=== PATIENT | female | born 1940 | race African-American/Black ===

== ENCOUNTER 2016-09-13 14:28 | Emergency (ER) | payer OTHER, BC ==
[2016-09-13 14:57] VITALS: BP 113/70; PULSE 92; RESP 18; TEMP 97.7; O2SAT 95
[2016-09-13] MEDS ORDERED: OXYCODONE/APAP 5/325 TAB PO ONE (15:44)
--- NOTE | 2016-09-13 16:45 | UCPHY ---
H & P Time Seen by Provider: 09/13/16 15:12 Patient Type: New HPI/ROS: [place] state and sustained 3 through 8 rib fractures and a small pneumothorax. She was admitted and treated from this injury a week ago and her daughter just brought her to [place] to recuperate. The patient is down to handful of Percocet left and requests a refill of Percocet and Flexeril. She also ran out of Flexeril. She had partial control of her pain with these medications without any medications she has 8/10 left-sided chest pain. She is using an incentive spirometer regularly as instructed. In she has no other complaints. ROS: No hemoptysis. No respiratory distress. No vomiting. No belly pain. No other significant injuries from her fall. 7 point ROS is otherwise negative. Past Medical/Surgical History: Left-sided rib fractures as described in HPI. Hypertension Hypercholesterolemia Otherwise healthy Smoking Status: Never smoked Physical Exam: General Appearance: Alert, no distress. Eyes: Pupils equal and round no pallor or injection. ENT, Mouth: Mucous membranes moist. Respiratory: Minimal rhonchi at the left base. Otherwise clear to auscultation. She has exquisite left-sided lateral rib 5 tenderness. No flail chest is evident. Cardiovascular: Regular rate and rhythm. Gastrointestinal: Abdomen is soft and nontender, no masses, bowel sounds normal. Neurological: Alert with no focal deficits. Skin: Warm and dry, no rashes. Musculoskeletal: Neck is supple nontender. Extremities are symmetrical, full range of motion. Psychiatric: Mood and affect are normal DIFFERENTIAL DIAGNOSIS: After history and physical exam differential diagnosis was considered pre-existing rib fractures, for rule out ongoing pneumothorax, hemothorax or other complications. Constitutional: Initial Vital Signs Temperature (C) 36.5 C 09/13/16 14:49 Heart Rate 92 09/13/16 14:49 Respiratory Rate 18 09/13/16 14:49 Blood Pressure 113/70 09/13/16 14:49 O2 Sat (%) 95 09/13/16 14:49 O2 Delivery Mode Room Air Allergies/Adverse Reactions: aspirin Allergy (Verified 09/13/16 14:46) Home Medications: Medication Instructions Recorded Alendronate Sodium 09/13/16 Allopurinol 09/13/16 Amlodipine Besylate 09/13/16 Colchicine 09/13/16 Cyclobenzaprine [Flexeril 10 MG 10 mg PO TID PRN #30 tab 09/13/16 (*)] Docusate Sodium 09/13/16 Docusate Sodium [Colace 100 MG (*)] 100 mg PO BID PRN #20 cap 09/13/16 Ezetimibe 09/13/16 Flexeril 09/13/16 Lidocaine 09/13/16 Metoprolol Succinate 09/13/16 Percocet 5-325 mg Tablet 09/13/16 Simvastatin 09/13/16 oxyCODONE/APAP 5/325 [Percocet 1 - 2 tab PO Q4-6PRN PRN #30 tab 09/13/16 5/325 (*)] MDM/Departure - MDM Diagnostics: Chest x-ray PA and lateral: Left 3rd through 8th rib fractures. No pneumothorax. Small effusion at the left base. No significant change from previous chest x-ray that the family provided from the out [facility]. I reviewed this with Dr. Darell Mcadams-radiologist. Medications Given: Discontinued Medications Oxycodone/Acetaminophen (Percocet 5/325) 1 tab PO EDNOW ONE Stop: 09/13/16 15:45 Last Admin: 09/13/16 15:50 Dose: 1 tab ED Course/Re-evaluation: I counseled patient regarding her rib fractures. We treated her with a Percocet here for pain control partial relief. Discussion: No evidence of significant complications. Patient has normal vitals exception of an O2 sat of 95% on room air. She appears clinically well despite her significant rib fractures. - Depart Disposition: Home, Routine, Self-Care Clinical Impression: Multiple rib fractures involving four or more ribs Condition: Good Instructions: Rib Fracture (ED) Additional Instructions: Diagnosis: Multiple rib fractures Plan: Continue Percocet as needed for pain control Colace or other stool softener to prevent constipation Continue using incentive spirometer Follow up with Dr. Champion for another recheck for any ongoing symptoms. Her symptoms should gradually improve over the next 4-6 weeks. Go to the emergency department for any significant shortness of breath, fevers or other concerns Prescriptions: Cyclobenzaprine [Flexeril 10 MG (*)] 10 mg PO TID PRN #30 tab PRN Reason: Spasms Docusate Sodium [Colace 100 MG (*)] 100 mg PO BID PRN #20 cap PRN Reason: Constipation oxyCODONE/APAP 5/325 [Percocet 5/325 (*)] 1 - 2 tab PO Q4-6PRN PRN #30 tab PRN Reason: Pain Referrals: DAMON CHINCHILLA MD [Other] - As per Instructions Ramesh Hilton MD [Medical Doctor] - As per Instructions - PQRS PQRS Measurement: 134: Depression screening and followup, PRIME MD-PHQ2 (12 years and older) Over the last 2 weeks, how often have you been bothered by any of the following problems? 1. Feeling down, depressed, or hopeless? 2. Little interest or pleasure in doing things? [Patient answered no to both 1 and 2] [Patient answered yes to at least 1, referred to PCP for further evaluation.] [Not done because] [altered mental status] [patient refused] [critically ill]. 130: Documentation of medications. [Reviewed all patient medications, doses, route and frequency.] [Unable to obtain meds due to] [critical illness] [altered mental status] [ patient did not know]. 226: Do you smoke? [Yes, counseled to stop.] [No.] 47: 65 and older: Advanced care planning. Patient designates surrogate decision maker as [parent] [spouse] [ ]. [Patient refused.] [Patient has advanced directive.] 51: 18 years old and older with diagnosis of COPD, spirometry performance. [Spirometry not performed; equipment not available.] [Patient has no history of COPD] 52: 18 years old and older with COPD and symptoms of COPD or FEV1<60% predicted prescribed a B Agonist. [Spirometry not performed; equipment not available.]
== END 2016-09-13 17:12 | disposition home or self-care (01) ==
LOC: CED 14:28
DX: S22.32XA Fracture of one rib, left side, initial encounter for closed fracture (principal)
CPT/HCPCS: 71020; G0463